=== PATIENT | male | born 1940 | race African-American/Black ===

== ENCOUNTER 2022-01-13 02:13 | Emergency (ER) | payer MEDICARE ==
[~2022-01-13] VITALS: Ht 180.3 cm; Wt 80.9 kg
[~2022-01-13 02:13] MED LIST: DIPH-423 PO; HYDR12.522 PO; LISI40TA13 PO; OFLOXACIN; PRE1OS LEFTEYE; [UNRECOGNIZED DRUG - OTHER] OP
[2022-01-13] MEDS ORDERED: BEBTELOVIMAB 175 MG/2 ML VIAL IV ONE (05:05)
[2022-01-13 07:48] VITALS: BP 136/82
== END 2022-01-13 07:53 | disposition home or self-care (01) ==
LOC: ER 02:14
DX: U07.1 COVID-19 (principal); Z01.84 Encounter for antibody response examination; I10 Essential (primary) hypertension
CPT/HCPCS: 71045; 99283; M0222; Q0222